=== PATIENT | male | born 1960 | race African-American/Black ===

== ENCOUNTER 2017-05-13 13:04 | Inpatient (IN) | payer MEDICAID, OTHER ==
[~2017-05-13] VITALS: Ht 185.4 cm; Wt 123.0 kg
[2017-05-13 13:34] LABS: Basophils # (auto) 0.1 uL; Basophils % (auto) 1.1 % (0.0-2.0); Eosinophils # (auto) 0.5 uL; Eosinophils % (auto) 6.7 % (0.0-7.0); Hematocrit 44.5 % (41.0-53.0); Hemoglobin 15.3 g/dL (13.5-17.5); Lymphocytes # (auto) 1.8 uL; Lymphocytes % (auto) 23.7 % (10.0-50.0); Mean Corpuscular Hemoglobin 32.3 pg (28.0-32.0); Mean Corpuscular Hgb Conc. 34.4 g/dL (32.0-36.0); Mean Corpuscular Volume 93.9 fL (80.0-100.0); Monocytes # (auto) 0.6 uL; Monocytes % (auto) 8.4 % (0.0-12.0); Neutrophils # (auto) 4.6 uL; Neutrophils % (auto) 60.1 % (37.0-80.0); Nucleated Red Blood Cells % 0.1 %; Platelet Count (auto) 260 10^3/uL (140-450); Red Blood Cells 4.75 10^6/uL (4.5-5.90); Red Cell Distribution Width 14.1 % (11.8-14.3); White Blood Cell 7.7 10^3/uL (4.4-10.8)
[2017-05-13 13:59] LABS: Alanine Aminotransferase 22 U/L (16-61); Albumin 4.1 g/dL (3.4-5.0); Alkaline Phosphatase 63 U/L (45-117); Anion Gap 7 (5-15); Aspartate Aminotransferase 23 U/L (15-37); BUN/Creatinine Ratio 8.7; Bilirubin, Total 0.5 mg/dL (0.2-1.0); Blood Urea Nitrogen 11 mg/dL (7-18); Calcium 8.7 mg/dL (8.5-10.1); Carbon Dioxide 25 mmol/L (21-32); Chloride 107 mmol/L (98-107); GFR African American 75 mL/min; GFR Non-African American 62 mL/min; Glucose 112 mg/dL (74-106); Magnesium 2.2 mg/dL (1.6-2.6); Potassium 4.3 mmol/L (3.5-5.1); Sodium 139 mmol/L (136-145); Total Protein 7.5 g/dL (6.4-8.2)
[2017-05-13 21:01] LABS: Urine Bacteria NONE SEEN /hpf (None Seen); Urine Blood Negative /uL (Negative); Urine Specific Gravity 1.017 (1.001-1.035); Urine WBC 14 /hpf (0 - 3)
[2017-05-13] MEDS ORDERED: IPRATROPIUM BROM 0.5 MG/2.5ML INH SOL NEB ONE (22:00)
[2017-05-13] MEDS ORDERED: HYDROcodone-ACET 10/325MG TAB PO ONE (22:00)
[2017-05-13] MEDS ORDERED: ALBUTEROL SULF 2.5 MG/0.5ML(0.5%) NEB SOLN NEB ONE (22:00)
[2017-05-13 23:03] LABS: Partial Thromboplastin Time 29.2 sec (22.64-33.71); Prothrombin Time 10.9 sec (9.37-12.3)
[2017-05-14] MEDS ORDERED: NITROGLYCERIN 0.4 MG SL TAB SL PRN (01:00)
[2017-05-14] MEDS ORDERED: MORPHINE SULFATE 4 MG/ML SYR/VIAL IV PRN (01:00)
[2017-05-14] MEDS ORDERED: ONDANSETRON HCL 4 MG/2 ML VIAL IV PRN (01:00)
[2017-05-14] MEDS ORDERED: ACETAMINOPHEN 500 MG TAB PO PRN (01:00)
[2017-05-14 02:15] VITALS: BP 158/98
[2017-05-14 03:39] LABS: Cholesterol 177 mg/dL (< 200); HDL Cholesterol 46 mg/dL (40-59); LDL Cholesterol 109 mg/dL (< 100); Triglycerides 127 mg/dL (< 150)
[2017-05-14] MEDS ORDERED: hydrALAZINE HCL 20 MG/ML VL IV ONE (04:00)
[2017-05-14] MEDS: HYDROcodone-ACET 5/325MG TAB PO PRN ×3 (04:14→13:12)
[2017-05-14 05:12] LABS: Basophils # (auto) 0.1 uL; Basophils % (auto) 1.1 % (0.0-2.0); Eosinophils # (auto) 0.5 uL; Eosinophils % (auto) 6.4 % (0.0-7.0); Hematocrit 43.2 % (41.0-53.0); Hemoglobin 14.9 g/dL (13.5-17.5); Lymphocytes # (auto) 1.4 uL; Lymphocytes % (auto) 18.4 % (10.0-50.0); Mean Corpuscular Hemoglobin 32.3 pg (28.0-32.0); Mean Corpuscular Hgb Conc. 34.5 g/dL (32.0-36.0); Mean Corpuscular Volume 93.6 fL (80.0-100.0); Monocytes # (auto) 0.6 uL; Monocytes % (auto) 7.9 % (0.0-12.0); Neutrophils # (auto) 5.2 uL; Neutrophils % (auto) 66.2 % (37.0-80.0); Nucleated Red Blood Cells % 0.1 %; Platelet Count (auto) 239 10^3/uL (140-450); Red Blood Cells 4.62 10^6/uL (4.5-5.90); Red Cell Distribution Width 14.2 % (11.8-14.3); White Blood Cell 7.9 10^3/uL (4.4-10.8)
[2017-05-14 05:30] LABS: BUN/Creatinine Ratio 12.5; Calcium 9.2 mg/dL (8.5-10.1); Potassium 3.8 mmol/L (3.5-5.1)
[2017-05-14] MEDS ORDERED: LISI40TA PO (05:55)
[2017-05-14 08:00] VITALS: BP 163/92
[2017-05-14] MEDS ORDERED: ASPirin-EC 81 mg tab PO SCH (10:00)
[2017-05-14] MEDS ORDERED: LISINOPRIL 20 MG TAB PO SCH (10:00)
[2017-05-14 12:00] VITALS: BP 157/102
[2017-05-14] MEDS ORDERED: LOVA40TA72 PO (13:19)
[2017-05-14] MEDS ORDERED: HYDR25TA35 PO (13:19)
[2017-05-14] MEDS ORDERED: AMLO5TAB2 PO (13:20)
[2017-05-14] MEDS ORDERED: amLODIPine BESYLATE 5 MG TAB PO SCH (14:00)
[2017-05-14 15:26] VITALS: BP 151/96
[2017-05-14] MEDS ORDERED: ATORVASTATIN 20 MG TAB PO SCH (22:00)
== END 2017-05-14 15:50 | disposition home or self-care (01) | DRG 203 ==
LOC: ER 13:04 → TELE 13:05 → TELE-WESTW 05-14 02:00
PROVIDERS: ADMIT Nurse Practitioner Family; ATTEND Internal Medicine
DX: R07.89 Other chest pain (principal); J45.901 Unspecified asthma with (acute) exacerbation; I10 Essential (primary) hypertension; E66.01 Morbid (severe) obesity due to excess calories; N39.0 Urinary tract infection, site not specified; E78.5 Hyperlipidemia, unspecified; N40.0 Benign prostatic hyperplasia without lower urinary tract symptoms; M19.90 Unspecified osteoarthritis, unspecified site; M25.512 Pain in left shoulder; M54.9 Dorsalgia, unspecified; R73.9 Hyperglycemia, unspecified; Z71.89 Other specified counseling; Z82.49 Family history of ischemic heart disease and other diseases of the circulatory system
CPT/HCPCS: 36415; 71046; 80048; 80053; 80061; 81001; 83735; 83880; 84484; 85025; 85610; 85730; 93005; 93306; 94640; 94761

== ENCOUNTER 2022-08-19 03:19 | Emergency (ER) | payer MEDICAID, OTHER ==
[~2022-08-19] VITALS: Ht 185.4 cm; Wt 127.8 kg
[~2022-08-19 03:19] MED LIST: AMLO1TAB22 PO; HYDR-4296 PO; LISI40TA16 PO; LOVA40TA72 PO
[2022-08-19 03:44] VITALS: BP 174/108
[2022-08-19] MEDS ORDERED: KETOROLAC TROMETH 60MG/2ML VIAL IM ONE (07:30)
[2022-08-19] MEDS ORDERED: IBUP-1456 PO (08:03)
[2022-08-19] MEDS ORDERED: METH-1182 PO (08:03)
== END 2022-08-19 08:03 | disposition home or self-care (01) ==
LOC: ER 03:19
DX: S46.911A Strain of unspecified muscle, fascia and tendon at shoulder and upper arm level, right arm, initial encounter (principal); M51.36 Other intervertebral disc degeneration, lumbar region; J45.909 Unspecified asthma, uncomplicated; Z88.6 Allergy status to analgesic agent; Z88.8 Allergy status to other drugs, medicaments and biological substances; W18.39XA Other fall on same level, initial encounter; Y93.89 Activity, other specified; Y92.89 Other specified places as the place of occurrence of the external cause; Y99.8 Other external cause status
CPT/HCPCS: 72100; 73030; 96372; 99284; J1885